=== PATIENT | male | born 1950 | race Hispanic/Latino ===

== ENCOUNTER 2018-05-03 07:34 | Emergency (ER) | payer BC, MEDICARE ==
[2018-05-03 07:50] VITALS: O2SAT 97
[2018-05-03 08:16] LABS: BASO # 0.1 K/uL (0.0-0.2); EOS # 0.3 K/uL (0.0-0.7); EOS % 1.7 % (0.0-4.0); HEMOGLOBIN 15.7 g/dL (12.0-18.0); LYMPH # 2.4 K/uL (1.0-4.3); LYMPH % 15.9 % (20.0-40.0); MEAN CELL VOLUME 91.5 fL (80.0-94.0); MEAN CORPUSCULAR HEMOGLOBIN 30.9 pg (27.0-31.0); MEAN CORPUSCULAR HGB CONC 33.8 g/dL (33.0-37.0); MEAN PLATELET VOLUME 7.8 fL (7.2-11.7); MONO % 6.6 % (0.0-10.0); NEUT # 11.5 K/uL (1.8-7.0); NEUT % 74.8 % (50.0-75.0); NRBC % 0.1 % (0.0-2.0); RBC 5.1 Mil/uL (4.40-5.90); WHITE BLOOD COUNT 15.3 K/uL (4.8-10.8)
--- NOTE | 2018-05-03 08:25 | C.PDOC ---
History Of Present Illness 67 year old male patient brought to the ED by for an evaluation of confusion. As per , patient was trying to help his 91 year old mother in law who was screaming when he suddenly became confused. Denies slurred speech, facia l droop, weakness, numbness, tingling, chest pain, or headache. Time Seen by Provider: 05/03/18 07:41 Chief Complaint (Nursing): Altered Mental Status History Per: Patient, Family () History/Exam Limitations: None Onset/Duration Of Symptoms: Hrs Current Symptoms Are (Timing): Still Present Associated Symptoms: Confused Past Medical History Reviewed: Historical Data, Nursing Documentation, Vital Signs Vital Signs: Last Vital Signs Temp 98.7 F 05/03/18 07:46 Pulse 71 05/03/18 07:46 Resp 20 05/03/18 07:46 BP 151/68 H 05/03/18 07:46 Pulse Ox 97 05/03/18 07:46 - Medical History PMH: HTN, Mitral Valve Prolapse Surgical History: No Surg Hx Family History: States: No Known Family Hx - Social History Hx Alcohol Use: No Hx Substance Use: No - Immunization History Hx Tetanus Toxoid Vaccination: No Hx Influenza Vaccination: No Hx Pneumococcal Vaccination: No Review Of Systems Except As Marked, All Systems Reviewed And Found Negative. Constitutional: Negative for: Fever, Chills Cardiovascular: Negative for: Chest Pain Neurological: Positive for: Confusion. Negative for: Weakness, Numbness, Headache Physical Exam - Physical Exam Appears: Non-toxic Skin: Warm, Dry, No Rash Head: Atraumatic, Normacephalic Eye(s): bilateral: Normal Inspection, PERRL, EOMI Throat: Normal Neck: Normal ROM, Supple Chest: Symmetrical Cardiovascular: Rhythm Regular Respiratory: Normal Breath Sounds, No Rales, No Rhonchi, No Wheezing Gastrointestinal/Abdominal: Soft, No Tenderness Extremity: Normal ROM Extremity: Bilateral: Atraumatic, Normal Color And Temperature, Normal ROM Neurological/Psych: Oriented x3, Normal Speech, Normal Cognition, Normal Motor, Normal Sensation, Normal Reflexes Gait: Steady ED Course And Treatment - Laboratory Results Result Diagrams: 05/03/18 08:09 O2 Sat by Pulse Oximetry: 97 (RA) Pulse Ox Interpretation: Normal Medical Decision Making Medical Decision Making: Plan - CT head - EKG - Bloodwork - CXR - UA Disposition - Disposition Forms: [facility] (Czech) - 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 - Scribe Statement The provider has reviewed the documentation as recorded by the Scribe Mily Sepulveda All medical record entries made by the Mikel were at my direction and personally dictated by me. I have reviewed the chart and agree that the record accurately reflects my personal performance of the history, physical exam, medical decision making, and the department course for this patient. I have also personally directed, reviewed, and agree with the discharge instructions and d isposition.
[2018-05-03 08:29] LABS: ALBUMIN 4.6 g/dL (3.5-5.0); ALT/SGPT 27 U/L (21-72); AST/SGOT 35 U/L (17-59); BLOOD UREA NITROGEN 23 mg/dL (9-20); CALCIUM 9.7 mg/dl (8.6-10.4); GFR NON-AFRICAN AMERICAN > 60; LIPASE 170 U/L (23-300)
[2018-05-03 08:37] LABS: ALB/GLOB RATIO 1.4 (1.0-2.1)
[2018-05-03 09:11] LABS: URINE BILIRUBIN NEGATIVE (NEGATIVE); URINE BLOOD NEGATIVE (NEGATIVE); URINE CLARITY Clear (Clear); URINE COLOR Yellow (YELLOW); URINE GLUCOSE (UA) NORMAL (Normal); URINE LEUKOCYTE ESTERASE NEG Leu/uL (Negative); URINE PROTEIN NEGATIVE (NEGATIVE); URINE UROBILINOGEN NORMAL mg/dL (0.2-1.0)
--- NOTE | 2018-05-03 09:24 | C.PDOC ---
History Of Present Illness Eulalio Cooper is a 67 year old male patient brought to the ED by for an evaluation of confusion. As per , patient was trying to help his 91 year old mother in law who was screaming when he suddenly developed amnesia. Denies slurred speech, facial droop, weakness, numbness, tingling, chest pain, or headache. Time Seen by Provider: 05/03/18 07:41 Chief Complaint (Nursing): Altered Mental Status History Per: Patient, Family () History/Exam Limitations: Clinical Condition Onset/Duration Of Symptoms: Hrs Current Symptoms Are (Timing): Still Present Speech Is: Normal Associated Symptoms: Confused Past Medical History Reviewed: Historical Data, Nursing Documentation, Vital Signs Vital Signs: Last Vital Signs Temp 98.7 F 05/03/18 07:46 Pulse 71 05/03/18 07:46 Resp 20 05/03/18 07:46 BP 151/68 H 05/03/18 07:46 Pulse Ox 97 05/03/18 07:46 - Medical History PMH: HTN, Mitral Valve Prolapse Surgical History: No Surg Hx Family History: States: No Known Family Hx - Social History Hx Alcohol Use: No Hx Substance Use: No - Immunization History Hx Tetanus Toxoid Vaccination: No Hx Influenza Vaccination: No Hx Pneumococcal Vaccination: No Review Of Systems Except As Marked, All Systems Reviewed And Found Negative. Constitutional: Negative for: Fever, Chills Eyes: Negative for: Vision Change Neurological: Positive for: Confusion, Altered Mental Status. Negative for: Weakness, Numbness, Incoordination, Change in Speech Physical Exam - Physical Exam Appears: Non-toxic, No Acute Distress Skin: Warm, Dry, No Rash Head: Atraumatic, Normacephalic Eye(s): bilateral: Normal Inspection, PERRL, EOMI Nose: Normal Oral Mucosa: Moist Neck: Normal ROM, Supple Chest: Symmetrical Cardiovascular: Rhythm Regular Respiratory: Normal Breath Sounds, No Rales, No Rhonchi, No Wheezing Gastrointestinal/Abdominal: Soft, No Tenderness Extremity: Normal ROM Extremity: Bilateral: Normal Color And Temperature, Normal ROM Neurological/Psych: Oriented x3, Normal Speech, Normal Cognition, Normal Motor, Normal Sensation, Normal Reflexes Gait: Steady ED Course And Treatment - Laboratory Results Result Diagrams: 05/03/18 08:09 05/03/18 08:09 Lab Interpretation: No Acute Changes ECG: Interpreted By Me ECG Rhythm: Sinus Rhythm ECG Interpretation: Normal Rate From EC O2 Sat by Pulse Oximetry: 97 (RA) Pulse Ox Interpretation: Normal - Radiology CXR: Interpreted by Me CXR Interpretation: Yes: No Acute Disease - CT Scan/US No standard instances Other Rad Studies (CT/US): Read By Radiologist, Radiology Report Reviewed CT/US Interpretation: FINDINGS: HEMORRHAGE: No acute parenchymal, subarachnoid or extra-axial hemorrhage. BRAIN: Mild diffuse/confluent chronic periventricular white matter ischemic changes seen extending peripherally into the deep and subcortical the regions bilaterally. Changes are most conspicuous in the frontal lobes.. 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 VENTRICLES: No obstructive hydrocephalus. CALVARIUM: There are no acute calvarial fracture seen. . PARANASAL SINUSES: Minor mucosal thickening noted within the ethmoid and sphenoid sinuses. MASTOID AIR CELLS: Unremarkable as visualized. No inflammatory changes. OTHER FINDINGS: None. IMPRESSION: No acute intracranial hemorrhage. Mild chronic white matter ischemic changes. Mild generalized volume loss. Progress Note: Patient presented with his family after a period of amnesia following a incounter with his mother in law who was screaming. Family reports prior episode of similar amnesia after a surgical procedure. Patient alert awake ambulating without difficulty. Patient discharge in stable condition talking with family nwho report memory is returning Reassessment Condition: Improved Medical Decision Making Medical Decision Making: Plan - CT head - EKG - Bloodwork - CXR - UA Disposition Counseled Patient/Family Regarding: Studies Performed, Diagnosis, Need For Followup - Disposition Referrals: [facility] [Outside] [facility] [Outside] Disposition: HOME/ ROUTINE Disposition Time: 10:40 Condition: STABLE Additional Instructions: Follow up with your PMD for further evaluation Return to ED if any increase symptoms Instructions: Amnesia Forms: [facility] (Singaporean) - POA Present On Arrival: None - Clinical Impression Clinical Impression: Hysterical amnesia - PA / YARN PREPARATION SUPERVISOR / Resident Statement MD/DO has reviewed & agrees with the documentation as recorded. - Scribe Statement The provider has reviewed the documentation as recorded by the Scribe Mily Sepulveda All medical record entries made by the Scribe were at my direction and personally dictated by me. I have reviewed the chart and agree that the record accurately reflects my personal performance of the history, physical exam, medical decision making, and the department course for this patient. I have also personally directed, reviewed, and agree with the discharge instructions and disposition.
--- NOTE | 2018-05-03 09:27 | CT ---
Date of service: 05/03/2018 PROCEDURE: CT HEAD WITHOUT CONTRAST. HISTORY: R/O Bleed COMPARISON: No prior study available for comparison... TECHNIQUE: Axial computed tomography images were obtained through the head/brain without intravenous contrast. Radiation dose: Total exam DLP = 1184.72 mGy-cm. This CT exam was performed using one or more of the following dose reduction techniques: Automated exposure control, adjustment of the mA and/or kV according to patient size, and/or use of iterative reconstruction technique. FINDINGS: HEMORRHAGE: No acute parenchymal, subarachnoid or extra-axial hemorrhage. BRAIN: Mild diffuse/confluent chronic periventricular white matter ischemic changes seen extending peripherally into the deep and subcortical the regions bilaterally. Changes are most conspicuous in the frontal lobes.. 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 VENTRICLES: No obstructive hydrocephalus. CALVARIUM: There are no acute calvarial fracture seen. . PARANASAL SINUSES: Minor mucosal thickening noted within the ethmoid and sphenoid sinuses. MASTOID AIR CELLS: Unremarkable as visualized. No inflammatory changes. OTHER FINDINGS: None. IMPRESSION: No acute intracranial hemorrhage. Mild chronic white matter ischemic changes. Mild generalized volume loss.
[2018-05-03 09:32] LABS: BARBITURATES, UR NEGATIVE (NEGATIVE); BENZODIAZEPINES, UR NEGATIVE (NEGATIVE); OPIATES, UR NEGATIVE (NEGATIVE); PHENCYCLIDINE, UR NEGATIVE (NEGATIVE)
[2018-05-03 10:49] VITALS: BP 159/82; PULSE 74; RESP 18; TEMP 98.6
--- NOTE | 2018-05-03 11:46 | RAD ---
HISTORY: SOB COMPARISON: No prior. TECHNIQUE: Chest PA and lateral FINDINGS: Examination limited by habitus and patient obliquity. LUNGS: Right hilar prominence. Left basilar atelectasis/infiltrate. Please note that chest x-ray has limited sensitivity for the detection of pulmonary masses. PLEURA: No significant pleural effusion identified. No definite pneumothorax . CARDIOVASCULAR: Heart size appears within normal limits. Atherosclerotic calcification of the aorta. OSSEOUS STRUCTURES: Degenerative changes. VISUALIZED UPPER ABDOMEN: Unremarkable. OTHER FINDINGS: None. IMPRESSION: Right hilar prominence. Left basilar atelectasis/infiltrate.
--- NOTE | 2018-05-04 12:52 | CARD ---
APPROVED REPORT Date of service: 05/03/2018 EKG Measurement Heart [id number] <Conclusion> Normal sinus rhythm Normal ECG
== END 2018-05-03 11:09 | disposition home or self-care (01) ==
LOC: C.ER 07:34
DX: F44.0 Dissociative amnesia (principal); I10 Essential (primary) hypertension; I34.1 Nonrheumatic mitral (valve) prolapse
CPT/HCPCS: 70450; 71046; 80053; 81001; 82948; 83690; 84484; 85025; 93005; 99285; G0480